=== PATIENT | male | born 1980 | race Hispanic/Latino ===

== ENCOUNTER 2021-05-07 09:48 | Emergency (ER) | payer SELFPAY ==
[~2021-05-07] VITALS: Ht 180.3 cm; Wt 122.5 kg
[2021-05-07 09:57] VITALS: BP 124/93
== END 2021-05-07 10:44 | disposition home or self-care (01) ==
LOC: EDH 09:48
DX: R42 Dizziness and giddiness (principal)
CPT/HCPCS: 82948; 99282